=== PATIENT | male | born 1985 | race Caucasian/White ===

== ENCOUNTER 2017-06-02 16:42 | Emergency (ER) | payer BC ==
[~2017-06-02] VITALS: Ht 180.3 cm; Wt 101.4 kg
[2017-06-02 16:45] VITALS: TEMP 36.7; Ht 180.3 cm; Wt 101.4 kg
[2017-06-02 17:30] LABS: BASO % 0.4 %; BASO ABS # 0.03 K/uL (0-0.2); COMPLETE YES; EOS % 0.9 %; IG% 0.1 %; LYMPH % 27.9 %; LYMPH ABS # 1.91 K/uL (1.2-3.4); MEAN CELL VOLUME 86.9 fL (80-100); MEAN CORPUSCULAR HEMOGLOBIN 29.9 pg (25-34); MEAN CORPUSCULAR HGB CONC 34.4 g/dl (32-36); MEAN PLATELET VOLUME 10.1 fL (7.4-10.4); MONO % 8.9 %; NEUT % 61.8 %; PLATELET COUNT 236 K/uL (130-400); RED BLOOD COUNT 4.95 M/uL (4.7-6.1); WHITE BLOOD COUNT 6.85 K/uL (4.8-10.8)
[2017-06-02 17:43] LABS: PARTIAL THROMBOPLASTIN RATIO 1.1; PROTHROMBIN TIME (PATIENT) 10.4 SECONDS (9.0-12.0)
--- NOTE | 2017-06-02 17:48 | DIAGNOSTIC IMAGING REPORT ---
CHEST ONE VIEW PORTABLE HISTORY: Short of breath. COMPARISON: None. FINDINGS: The lungs are clear. Cardiac silhouette is normal in size. No pleural effusions. No pneumothorax. IMPRESSION: No acute process. Electronically signed by: Yfn Powell M.D. 06/02/2017 5:47 PM Dictated Date/Time: 06/02/2017 5:45 PM
[2017-06-02 17:54] LABS: ALT/SGPT 29 U/L (12-78); BLOOD UREA NITROGEN 13 mg/dl (7-18); BUN/CREATININE RATIO 13.4 (10-20); CALCIUM 9.1 mg/dl (8.5-10.1); CARBON DIOXIDE 28 mmol/L (21-32); CHLORIDE 104 mmol/L (98-107); GLUCOSE 105 mg/dl (70-99); POTASSIUM 3.6 mmol/L (3.5-5.1); SODIUM 139 mmol/L (136-145)
[2017-06-02 17:59] LABS: ALB/GLOB RATIO 1.2 (0.9-2); ALKALINE PHOSPHATASE 56 U/L (45-117); AST/SGOT 18 U/L (15-37); CKMB/CK RATIO 0.8 (0-3.0)
[2017-06-02] MEDS ORDERED: ALBUTEROL HFA 8 GM INHALER INH STA (19:09)
[2017-06-02 19:33] VITALS: BP 129/74; PULSE 69; O2SAT 98
--- NOTE | 2017-06-03 00:53 | EMERGENCY ROOM VISIT NOTE ---
History First contact with patient: 16:56 Chief Complaint: SHORTNESS OF BREATH Stated Complaint: SOB Nursing Triage Summary: having trouble taking A deep breath for about the past week. symptoms progressed today. History of Present Illness The patient is a 32 year old male who presents to the Emergency Room with complaints of persistent shortness of breath and difficulty taking a deep breath. The patient reports that he developed an upper respiratory infection approximate 2 months ago. He reports that within a week, he was seen at an urgent care center and provided a prescription for a Z-Drew. When he did not have any significant relief of his symptoms, he was then provided a prescription for a corticosteroid with mild improvement. Over the past 2 weeks , he now reports worsening symptoms, she will and lying and then area he also reports mildly worsening discomfort with deep breathing. He denies any overt chest pain, peripheral edema, nausea or diaphoresis he denies any cardiopulmonary history. Review of Systems HEENT: Denies dizziness, visual problems, hearing loss, tinnitus. Denies difficulty swallowing or oral lesions. PULMONARY: Denies current cough, sputum production or hemoptysis. Otherwise see history of present illness. CARDIOVASCULAR: Denies chest pain, palpitations, dyspnea on exertion, orthopnea or peripheral edema. GASTROINTESTINAL: Denies diarrhea, constipation, nausea, vomiting, or abdominal pain. GENITOURINARY: Denies dysuria, frequency, urgency or nocturia. NEUROLOGIC: Denies history of epilepsy, CVA, TIA or chronic headaches. MUSCULOSKELETAL: Denies history of joint tenderness/swelling. SKIN: Denies rashes or lesions. PSYCHIATRIC: Denies history of depression or mental illness. ENDOCRINE: Denies history of diabetes or thyroid disorders. Past Medical/Surgical History Medical Problems: (1) Mild exercise-induced asthma Surgical Problems: (1) History of wisdom tooth extraction Family History FH: cancer FH: heart disease FH: hypertension FH: kidney disease Social History Smoking Status: Never Smoker Alcohol Use: occasionally Marital Status: single, in relationship Housing Status: lives with family, lives with significant other Occupation Status: employed Current/Historical Medications No Active Prescriptions or Reported Meds Physical Exam Vital Signs Date Time Temp Pulse Resp B/P (MAP) Pulse Ox O2 Delivery O2 Flow Rate FiO2 06/02/17 19:33 69 18 129/74 98 Room Air 06/02/17 18:32 72 18 133/81 98 Room Air 06/02/17 17:40 83 06/02/17 16:48 98 Room Air 06/02/17 16:45 36.7 80 18 161/87 97 Room Air Physical Exam CONSTITUTIONAL: Healthy and well nourished. Alert and oriented X 3 with positive affect. Patient does not appear in any acute distress. HEENT: Normocephalic, atraumatic. Pupils equal, round and reactive. Ears and nares are clear. No scleral icterus or conjunctival injection/pallor. NECK: Full active range of motion without discomfort. No JVD or carotid bruits. RESPIRATORY: Clear to auscultation bilaterally with no wheezing, crackles, rhonchi or stridor. Deep breathing does not appear to cause any discomfort. CARDIOVASCULAR: Regular rate and rhythm with no murmurs, rubs or gallops. GASTROINTESTINAL: Bowel sounds present in all quadrants. Soft and nontender to palpation. MUSCULOSKELETAL: Full range of motion of all joints without discomfort. INTEGUMENTARY: No rash or other significant dermatologic conditions noted. HEMATOLOGIC: No ecchymosis or petechiae noted. NEUROLOGIC: No focal neurologic deficits noted. Medical Decision & Procedures ER Provider Diagnostic Interpretation: My interpretation of an ECG shows a normal sinus rhythm of [address] elevation or other conduction abnormalities. My interpretation of a portable chest x-ray does not show any consolidations, pneumothorax or widened mediastinum. Radiologist report is as follows: CHEST ONE VIEW PORTABLE HISTORY: Short of breath. COMPARISON: None. FINDINGS: The lungs are clear. Cardiac silhouette is normal in size. No pleural effusions. No pneumothorax. IMPRESSION: No acute process. Laboratory Results 06/02/17 17:17 Red Blood Count 4.95, Mean Corpuscular Volume 86.9, Mean Corpuscular Hemoglobin 29.9, Mean Corpuscular Hemoglobin Concent 34.4, Mean Platelet Volume 10.1, Neutrophils (%) (Auto) 61.8, Lymphocytes (%) (Auto) 27.9, Monocytes (%) (Auto) 8.9, Eosinophils (%) (Auto) 0.9, Basophils (%) (Auto) 0.4, Neutrophils # (Auto) 4.23, Lymphocytes # (Auto) 1.91, Monocytes # (Auto) 0.61, Eosinophils # (Auto) 0.06, Basophils # (Auto) 0.03 06/02/17 17:17 Test 06/02/17 17:17 White Blood Count 6.85 K/uL (4.8-10.8) Red Blood Count 4.95 M/uL (4.7-6.1) Hemoglobin 14.8 g/dL (14.0-18.0) Hematocrit 43.0 % (42-52) Mean Corpuscular Volume 86.9 fL (80-100) Mean Corpuscular Hemoglobin 29.9 pg (25-34) Mean Corpuscular Hemoglobin Concent 34.4 g/dl (32-36) Platelet Count 236 K/uL (130-400) Mean Platelet Volume 10.1 fL (7.4-10.4) Neutrophils (%) (Auto) 61.8 % Lymphocytes (%) (Auto) 27.9 % Monocytes (%) (Auto) 8.9 % Eosinophils (%) (Auto) 0.9 % Basophils (%) (Auto) 0.4 % Neutrophils # (Auto) 4.23 K/uL (1.4-6.5) Lymphocytes # (Auto) 1.91 K/uL (1.2-3.4) Monocytes # (Auto) 0.61 K/uL (0.11-0.59) Eosinophils # (Auto) 0.06 K/uL (0-0.5) Basophils # (Auto) 0.03 K/uL (0-0.2) RDW Standard Deviation 43.0 fL (36.4-46.3) RDW Coefficient of Variation 13.7 % (11.5-14.5) Immature Granulocyte % (Auto) 0.1 % Immature Granulocyte # (Auto) 0.01 K/uL (0.00-0.02) Prothrombin Time 10.4 SECONDS (9.0-12.0) Prothromb Time International Ratio 1.0 (0.9-1.1) Activated Partial Thromboplast Time 28.0 SECONDS (21.0-31.0) Partial Thromboplastin Ratio 1.1 D-Dimer < 190 ug/L FEU (0-500) Anion Gap 7.0 mmol/L (3-11) Est Creatinine Clear Calc Drug Dose 129.8 ml/min Estimated GFR () 115.7 Estimated GFR (Non- 99.8 BUN/Creatinine Ratio 13.4 (10-20) Calcium Level 9.1 mg/dl (8.5-10.1) Total Bilirubin 0.5 mg/dl (0.2-1) Aspartate Amino Transf (AST/SGOT) 18 U/L (15-37) Alanine Aminotransferase (ALT/SGPT) 29 U/L (12-78) Alkaline Phosphatase 56 U/L (45-117) Total Creatine Kinase 169 U/L (39-308) Creatine Kinase MB 1.3 ng/ml (0.5-3.6) Creatine Kinase MB Ratio 0.8 (0-3.0) Troponin I < 0.015 ng/ml (0-0.045) Total Protein 8.0 gm/dl (6.4-8.2) Albumin 4.4 gm/dl (3.4-5.0) Globulin 3.6 gm/dl (2.5-4.0) Albumin/Globulin Ratio 1.2 (0.9-2) The above labs were reviewed. D-dimer and troponin are normal. CBC, partial renal profile, LFTs and lipase are also grossly normal. Medications Administered Medications (Trade) Dose Ordered Sig/Sandhya Route Start Time Stop Time Status Last Admin Dose Admin Albuterol (Ventolin Hfa Inhaler) 2 puffs ONE STAT INH 06/02/17 19:09 06/02/17 19:10 DC 06/02/17 19:09 2 PUFFS ED Course Patient history and physical exam were performed. Nurse's notes were reviewed. Vital signs were reviewed, showing a marginally elevated blood pressure 161/ 87. Otherwise patient is afebrile, not tachycardic and has a normal O2 saturation on room air. The patient does not appear in any acute discomfort or respiratory distress on exam. With lung auscultations, the patient did complain of dizziness. IV access was established, and labs were drawn. An ECG and portable chest x-ray were normal. Review of labs did not show any acute findings. D-dimer and troponin were normal. The patient is not anemic. Electrolytes are also otherwise grossly normal. Findings were discussed with the patient. At this point, he was encouraged to follow-up with his PCP for further reevaluation and management. Several different possibilities, including pruritus was also discussed with the patient. He was encouraged to take ibuprofen and Tylenol as needed for pain. Return to the emergency department for any progressively worsening symptoms. The patient was happy with plan of care, and voiced understanding of all discharge instructions, denying any chest pain or shortness of breath at that time. Medical Decision Workup today is not suggestive of pneumothorax, pneumonia, pulmonary embolus, myocardial infarction or other acute cardiopulmonary etiologies. Laboratory studies also are not suggestive of pancreatitis, hepatitis, cholecystitis or significant electrolyte abnormality. Furtick chest pain is certainly a possibility given that the patient has recently had an upper respiratory infection. His cough does seem to be improving, therefore I do not feel that further antibiotic treatment is warranted. He may require pulmonology referral given the persistence of the symptoms. Medication Reconcilliation Current Medication List: was personally reviewed by me Blood Pressure Screening Patient's blood pressure: Normal blood pressure Impression Primary Impression: Non-cardiac chest pain Additional Impression: Shortness of breath Departure Information Prescriptions No Active Prescriptions or Reported Meds Referrals No Doctor, Assigned (PCP) Patient Instructions [facility] Health Problem Qualifiers
== END 2017-06-02 19:34 | disposition home or self-care (01) ==
LOC: C.EDB 16:43 → C.EDD 19:34
DX: R07.9 Chest pain, unspecified (principal); R06.02 Shortness of breath; Z80.9 Family history of malignant neoplasm, unspecified; Z82.49 Family history of ischemic heart disease and other diseases of the circulatory system; Z84.1 Family history of disorders of kidney and ureter